=== PATIENT | male | born 1985 | race African-American/Black ===

== ENCOUNTER → 2017-06-23 | Emergency (ER) | payer OTHER ==
[~2017-06-23] VITALS: Ht 182.9 cm; Wt 104.3 kg
[~2017-06-23] MED LIST: DUI500 PO; KETO10TA2 PO
== END | disposition home or self-care (01) ==
LOC: ER 20:37 → EDSEX 21:30
DX: S91.341A Puncture wound with foreign body, right foot, initial encounter (principal); W26.8XXA Contact with other sharp object(s), not elsewhere classified, initial encounter; Y93.89 Activity, other specified; Y92.89 Other specified places as the place of occurrence of the external cause; Y99.8 Other external cause status